=== PATIENT | male | born 1970 | race Two or more races ===

== ENCOUNTER 2016-08-14 11:40 | Emergency (ER) | payer OTHER ==
--- NOTE | 2016-08-14 13:18 | RAD ---
INDICATION: Left fourth digit injury COMPARISON: None TECHNIQUE: AP, lateral, and oblique images were obtained. FINDINGS: There is no acute fracture or dislocation. There is soft tissue swelling about the PIP joint. IMPRESSION: SOFT TISSUE SWELLING. NO ACUTE FRACTURE.
--- NOTE | 2016-08-14 13:32 | ED ---
Upper Extremity Pain - HPI Summary HPI Summary: 46M presents with left ring finger injury for 4 days ago jammed finger on basketball. He states he feels he dislocated his finger. He has full ROM of his finger. He has swelling on his PIP joint. He is right handed. - History of Current Complaint Chief Complaint: EDExtremityUpper Stated Complaint: FINGER SWELLING Time Seen by Provider: 08/14/16 12:06 - Allergies/Home Medications Allergies/Adverse Reactions: Allergies Allergy/AdvReac Type Severity Reaction Status Date / Time No Known Allergies Allergy Verified 05/02/15 14:02 PMH/Surg Hx/FS Hx/Imm Hx Endocrine/Hematology History: Denies: Hx Diabetes, Hx Systemic Lupus Erythematosus, Hx Thyroid Disease Cardiovascular History: Denies: Hx Congestive Heart Failure, Hx Hypertension, Hx Pacemaker/ICD Respiratory History: Denies: Hx Asthma, Hx Chronic Obstructive Pulmonary Disease (COPD) GI History: Denies: Hx Ulcer History: Denies: Hx Dialysis, Hx Renal Disease Sensory History: Denies: Hx Hearing Aid Psychiatric History: Denies: Hx Panic Disorder - Surgical History Surgery Procedure, Year, and Place: Colonoscopy Infectious Disease History: No Infectious Disease History: Denies: Hx Hepatitis, Hx Human Immunodeficiency Virus (HIV), Traveled Outside the [place] in Last 30 Days - Family History Known Family History: Negative: Hypertension, Diabetes - Social History Alcohol Use: None Hx Substance Use: No Substance Use Type: Reports: None Hx Tobacco Use: No Smoking Status (MU): Never Smoked Tobacco Review of Systems Negative: Fever Negative: Chest Pain Negative: Shortness Of Breath Positive: Myalgia - left ring finger pain All Other Systems Reviewed And Are Negative: Yes Physical Exam Triage Information Reviewed: Yes Vital Signs On Initial Exam: Initial Vitals Temp Pulse Resp BP Pulse Ox 96.7 F 60 20 110/63 100 08/14/16 11:53 08/14/16 11:53 08/14/16 11:53 08/14/16 11:53 08/14/16 11:53 Vital Signs Reviewed: Yes Appearance: Positive: Well-Appearing Skin: Positive: Warm, Dry Head/Face: Positive: Normal Head/Face Inspection Eyes: Positive: Normal, Conjunctiva Clear Respiratory/Lung Sounds: Positive: Clear to Auscultation, Breath Sounds Present Cardiovascular: Positive: Normal, RRR Musculoskeletal: Positive: Strength/ROM Intact - of left index finger, Other - edema noted of DIP joint of left ring finger, no step off, good pulses, capillary refill <2 secs Procedures - Splinting Location: left index finger Pre-Made Type: metal Pre-Proc Neuro Vasc Exam: normal Post-Proc Neuro Vasc Exam: normal Diagnostics - Vital Signs Vital Signs Temp Pulse Resp BP Pulse Ox 08/14/16 12:19 97.2 F 61 18 111/67 100 08/14/16 11:53 96.7 F 60 20 110/63 100 - Laboratory Lab Statement: Any lab studies that have been ordered have been reviewed, and results considered in the medical decision making process. - Radiology left ring finger Xray Interpretation: Positive (See Comments) - IMPRESSION: SOFT TISSUE SWELLING. NO ACUTE FRACTURE. Radiology Interpretation Completed By: Radiologist Course/Dx - Course Course Of Treatment: 46M presents with left ring finger pain s/p jamming finger on basketball. has edema of DIP joint with full ROM of finger. xray normal. no step off on exam. placed finger in premade finger splint. patient understands and agrees with plan - Diagnoses Differential Diagnosis/HQI/PQRI: Positive: Fracture (Closed), Strain, Sprain, Other - dislocation Provider Diagnoses: Injury of left ring finger Discharge - Discharge Plan Condition: Good Disposition: HOME Patient Education Materials: Pedro Luis Finger (ED) Referrals: Mimi Parker MD [Primary Care Provider] - Additional Instructions: Keep finger in splint Take Tylenol or ibuprofen for pain every [address] ice on area Follow up with primary if no improvement Return to ED if develop any new or worsening symptoms
[2016-08-14 13:55] VITALS: BP 121/74
== END 2016-08-14 13:53 | disposition home or self-care (01) ==
LOC: ED 11:40
DX: S69.92XA Unspecified injury of left wrist, hand and finger(s), initial encounter (principal); W21.05XA Struck by basketball, initial encounter; Y92.9 Unspecified place or not applicable
CPT/HCPCS: 73140; 99282

== ENCOUNTER 2019-01-30 09:18 | Emergency (ER) | payer OTHER ==
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
[2019-01-30 10:36] VITALS: BP 134/78
== END 2019-01-30 10:22 | disposition home or self-care (01) ==
LOC: ED 09:18
DX: S16.1XXA Strain of muscle, fascia and tendon at neck level, initial encounter (principal); R51 Headache; V49.49XA Driver injured in collision with other motor vehicles in traffic accident, initial encounter; Y92.410 Unspecified street and highway as the place of occurrence of the external cause
CPT/HCPCS: 70450; 99282